=== PATIENT | male | born 1980 | race Caucasian/White ===

== ENCOUNTER 2016-04-27 08:43 | Day surgery (SDC) | payer BC ==
[2016-04-27] MEDS ORDERED: Bupivacaine 0.5%/EPINEPHrine 1:200,000 50 ML MDV ONE (08:49)
[2016-04-27] MEDS ORDERED: Naloxone 0.4 MG/ML SDV IVPUSH PRN (09:32)
[2016-04-27] MEDS ORDERED: HYDROmorphone/Normal Saline 15 MG/30 ML PCA IV PRN (09:32)
[2016-04-27] MEDS ORDERED: Naloxone 0.4 MG/ML SDV IV PRN (09:35)
[2016-04-27] MEDS: Dextrose 5%-Lactated Ringers 1,000 ML IV SCH ×2 (10:02→23:30)
[2016-04-27] MEDS ORDERED: fentaNYL 250 MCG/5 ML SDV ONE (11:28)
[2016-04-27] MEDS ORDERED: Neostigmine Methylsulfate 1 MG/ML 5 ML Syringe ONE (11:29)
[2016-04-27] MEDS ORDERED: Succinylcholine/Normal Saline 200 MG/10 ML Syringe ONE (11:29)
[2016-04-27] MEDS ORDERED: Rocuronium 50 MG/5 ML Vial ONE (11:29)
[2016-04-27] MEDS ORDERED: Dexamethasone 4 MG/ML SDV ONE (11:29)
[2016-04-27] MEDS ORDERED: Ondansetron 4 MG/2 ML SDV ONE (11:29)
[2016-04-27] MEDS ORDERED: Propofol 200 MG/20 ML SDV ONE (11:29)
[2016-04-27] MEDS: Ampicillin/Sulbactam Na 3 GM in Sodium Chloride 0.9% 100 ML IV ONE ×2 (12:10→13:53)
[2016-04-27] MEDS ORDERED: fentaNYL 100 MCG/2 ML SDV ONE (12:13)
[2016-04-27] MEDS ORDERED: Ondansetron 4 MG/2 ML SDV IVPUSH PRN (14:00)
[2016-04-27] MEDS ORDERED: Pantoprazole 40 MG Vial IVPUSH SCH (16:00)
[2016-04-27] MEDS: Ampicillin/Sulbactam Na 3 GM in Sodium Chloride 0.9% 100 ML IV SCH ×2 (17:22→23:30)
[2016-04-27] MEDS: Acetaminophen/HYDROcodone 325-5 MG Tab PO PRN ×2 (19:22→23:34)
[2016-04-28] MEDS: Ampicillin/Sulbactam Na 3 GM in Sodium Chloride 0.9% 100 ML IV SCH (05:47)
[2016-04-28 08:09] VITALS: BP 147/84
[2016-04-28] MEDS: Acetaminophen/HYDROcodone 325-5 MG Tab PO PRN (08:14)
[2016-04-28] MEDS ORDERED: Magnesium Hydroxide 400 MG/5 ML Susp 30 ML Cup PO ONE (09:07)
--- NOTE | 2016-04-28 11:39 | DISCH ---
ADMISSION DIAGNOSIS: Cholecystitis and cholelithiasis. DISCHARGE DIAGNOSIS: Laparoscopic cholecystectomy for subacute cholecystitis and cholelithiasis on 04/27/2016. HISTORY: Flaco Mcneil is a 36-year-old male with abdominal pain. After preoperative evaluation and discussion of possible risks and possible complications, he wished to proceed with surgical procedure. HOSPITAL COURSE: Flaco had a surgery on 04/27/2016. He had no operative complications. On postop day 1, his pain was well managed. His activity was good. His vital signs were stable, and he was able to be discharged to home. PHYSICAL EXAMINATION: GENERAL: Flaco Mcneil is a 36-year-old male. VITAL SIGNS: Height 5 feet 11.5 inches, weight is 225 pounds. TPR is 99.3, 73, 16, blood pressure 147/84. HEENT: Negative. NECK: Supple. HEART: Regular rate and rhythm. LUNGS: Clear. ABDOMEN: Incisions look good. 4x4s over SISSY drains. Abdominal binder is on. EXTREMITIES: Without peripheral edema. DISPOSITION: Discharged to home. CONDITION: Stable and improving. FOLLOWUP APPOINTMENT: Little Barron PA-C, on 05/08/2016 at 9:00 a.m. HOME MEDICATIONS: 1. Worth 5/325 mg 1 to 2 every 4 hours p.r.n. pain. 2. Milk of magnesia 30 mL two were sent home with patient to take 1 daily for constipation. 3. He is to resume his home medications. DIET: After discharge, usual diet as tolerated. Avoid high fat and spicy foods, drink 8 to 10 glasses of water a day. ACTIVITY: As tolerated. No lifting greater than 10 pounds for [address] after discharge, do not drive on pain medication. Shower bathing, may shower. Notify provider of fever, increased pain, nausea, or vomiting. Wound incision care. Wear abdominal binder for 2 weeks and then as tolerated. SPECIAL INSTRUCTION: Use incentive spirometer 10 times in a row every hour while awake for 2 weeks.
--- NOTE | 2016-05-04 19:34 | OR ---
DATE OF PROCEDURE: 04/27/2016 PREOPERATIVE DIAGNOSIS: Subacute cholecystitis. POSTOPERATIVE DIAGNOSIS: Subacute cholecystitis. OPERATIVE PROCEDURE: Laparoscopic cholecystectomy (98167). ANESTHESIA: General. RF MICROWAVE ENGINEER: Little Barron PA-C. INDICATIONS FOR PROCEDURE: This is a 36-year-old with a several-day history of smoldering abdominal pain. The diagnosis at this point is that of a subacute and chronic cholecystitis. Plan is to proceed with laparoscopic cholecystectomy. Potential risks including bleeding, infection, injury to underlying viscera such as the common bile duct, possibility of stones migrating into or being present in the common bile duct requiring additional procedures for correction, as well as possibility of cardiopulmonary, septic, or hemorrhagic complications leading to were discussed, and the patient wishes to proceed. DETAILS OF PROCEDURE: The patient was taken to the operating room and placed in a supine position. After general endotracheal anesthesia was induced, the abdomen was prepped and draped. A transverse incision just to the right of the umbilicus was then made and carried down through the skin and subcutaneous tissue. The peritoneal cavity was then entered under direct vision with Optiview trocar and inflated to 15 mmHg of CO2. Laparoscope was reinserted. No underlying trocar insertion site injuries were seen. Following this, a 12 mm epigastric trocar as well as a 5 mm right abdominal trocar were placed and the upper abdomen examined. As expected, the patient was noted to have quite edematous gallbladder, which was densely distended, consistent with a subacute cholecystitis. There were some omental adhesions, which were then taken down with Harmonic scalpel and with the same instrument then dissection continued around the gallbladder neck. The gallbladder neck and cystic duct junction was dissected out. Once this was well delineated as was the adjacent cystic artery, both structures were clipped 3 times proximally and once distally and divided. The gallbladder was then dissected off the gallbladder bed with the Harmonic scalpel and delivered through the upper midline port. This contained among other things roughly a 1 cm stone, which appeared to likely have been lodged in the gallbladder neck, resulting in the present cholecystitis. The area of dissection was then inspected. No bleeding or bile leaks were seen. A Demetris-Heredia drain was taken out through the right lateral trocar site. At that point, no further problems were noted. Trocars were removed. The peritoneal cavity was deflated. The incisions at the 12 mm sites were closed with 0 Vicryl stitch, and the skin with 4-0 Vicryl skin stitch. Dressing was applied. The patient was taken to the recovery room in satisfactory condition. Physician human services assistant, Little Barron, played an essential role in assisting in this case, helping to position the patient, retracting structures as needed, as well as suturing and cutting sutures when indicated. Her presence improved patient safety and decreased the operative time. Schuyler Harding MD /[id number]
== END 2016-04-28 10:15 | disposition home or self-care (01) ==
LOC: JP.SDS 08:43 → JP.2SS 13:10 → JP.SDS 04-28 10:15
PROVIDERS: ATTEND Surgery
PROC: 0FT44ZZ Resection of Gallbladder, Percutaneous Endoscopic Approach (ICD-10-PCS; principal; 2016-04-27)
DX: K80.10 Calculus of gallbladder with chronic cholecystitis without obstruction (principal)
CPT/HCPCS: 36415; 47562; 80053; 82247; 84075; 85027; 88304; 94762; A9270; C9113; J0295; J1100; J1170; J2405; J2704; J3010; J7030; J7042